=== PATIENT | male | born 1945 ===

== ENCOUNTER 2023-08-16 19:21 | Outpatient (NON) | payer MEDICARE, SELFPAY ==
[2023-08-16 22:15] LABS: Appearance Urine Clear (Clear); Bilirubin Urine Negative (Negative); Blood Urine Negative (Negative); Color Urine Yellow (Yellow); Glucose Urine UA Negative (Negative); Ketones Urine Negative (Negative); Leukocyte Esterase Ur Negative LEU/UL (Negative); Nitrate Urine Negative (Negative); Protein Urine Negative (Negative)
[2023-08-16 22:16] LABS: Add Urine Microscopic? NO
== END 2023-08-16 19:22 | disposition home or self-care (01) ==
LOC: CHSLAB 19:30
DX: R41.0 Disorientation, unspecified (principal)
CPT/HCPCS: 81003